=== PATIENT | female | born 1980 | race Caucasian/White ===

== ENCOUNTER 2017-10-20 06:35 | Day surgery (SDC) | payer BC, MEDICARE, OTHER ==
[~2017-10-20 06:35] MED LIST: Lactated Ringers 1,000 ML IV SCH; Lidocaine 1%/Sod Bicarbonate in NS 8.4% 1 ML Syringe PRN; Sodium Chloride 0.9% 10 ML Syringe FLUSH PRN
[2017-10-20] MEDS ORDERED: Bupivacaine 0.5% 30 ML SDV ONE (07:16)
[2017-10-20] MEDS ORDERED: Bupivacaine 0.5%/EPINEPHrine 1:200,000 50 ML MDV ONE (07:16)
--- NOTE | 2017-10-20 07:37 | PCM.PREANE ---
Preanesthetic Assessment - Procedure Proposed Procedure: Total vaginal hysterectomy with BS, Possible LAVH with BS, Possible WALTER with BS - Anesthesia/Transfusion/Family Hx Anesthesia History: No Prior Anesthesia Family History of Anesthesia Reaction: Yes (nausea) Transfusion History: No Prior Transfusion(s) - Review of Systems General: No Symptoms Pulmonary: No Symptoms Cardiovascular: No Symptoms Gastrointestinal: No Symptoms Neurological: No Symptoms Other: Reports: None - Physical Assessment NPO Status Date: 10/19/17 NPO Status Time: 21:00 O2 Sat by Pulse Oximetry: 96 Respiratory Rate: 16 Vital Signs: Last Vital Signs Temp 37.3 C 10/20/17 07:00 Pulse 108 H 10/20/17 07:00 Resp 16 10/20/17 07:00 BP 118/80 10/20/17 07:00 Pulse Ox 96 10/20/17 07:00 Height: 1.6 m Weight: 69.853 kg ASA Class: 2 Mental Status: Alert & Oriented x3 Airway Class: Mallampati = 1 Dentition: Reports: Normal Dentition ROM/Head Extension: Full Lungs: Clear to Auscultation, Normal Respiratory Effort Cardiovascular: Regular Rate, Regular Rhythm - Lab Values: Laboratory Last Values WBC 7.37 K/mm3 (3.98-10.04) 10/20/17 07:10 RBC 4.61 M/mm3 (3.98-5.22) 10/20/17 07:10 Hgb 14.5 gm/L (11.2-15.7) 10/20/17 07:10 Hct 41.5 % (34.1-44.9) 10/20/17 07:10 MCV 90.0 fl (79.4-94.8) 10/20/17 07:10 MCH 31.5 pg (25.6-32.2) 10/20/17 07:10 MCHC 34.9 g/dl (32.2-35.5) 10/20/17 07:10 RDW Std Deviation 38.2 fL (36.4-46.3) 10/20/17 07:10 Plt Count 245 K/mm3 (182-369) 10/20/17 07:10 MPV 8.9 fl (9.4-12.3) L 10/20/17 07:10 Neut % (Auto) 69.0 % (34.0-71.1) 10/20/17 07:10 Lymph % (Auto) 22.0 % (19.3-51.7) 10/20/17 07:10 Luna % (Auto) 6.6 % (4.7-12.5) 10/20/17 07:10 Eos % (Auto) 2.0 (0.7-5.8) 10/20/17 07:10 Baso % (Auto) 0.3 % (0.1-1.2) 10/20/17 07:10 Neut # (Auto) 5.08 K/mm3 (1.56-6.13) 10/20/17 07:10 Lymph # (Auto) 1.62 K/mm3 (1.18-3.74) 10/20/17 07:10 Luna # (Auto) 0.49 K/mm3 (0.24-0.36) H 10/20/17 07:10 Eos # (Auto) 0.15 K/mm3 (0.04-0.36) 10/20/17 07:10 Baso # (Auto) 0.02 K/mm3 (0.01-0.08) 10/20/17 07:10 Urine HCG, Qual Negative (NEGATIVE) 10/20/17 06:49 - Allergies Allergies/Adverse Reactions: Allergies Allergy/AdvReac Type Severity Reaction Status Date / Time No Known Allergies Allergy Verified 10/19/17 12:35 - Blood Blood Available: No - Anesthesia Plan Pre-Op Medication Ordered: None - Acknowledgements Anesthesia Type Planned: General Anesthesia Pt an Appropriate Candidate for the Planned Anesthesia: Yes Alternatives and Risks of Anesthesia Discussed w Pt/Guardian: Yes Pt/Guardian Understands and Agrees with Anesthesia Plan: Yes PreAnesthesia Questionnaire Other Genitourinary History: irregular menses, fibroid uterus Neurological History: Reports: Migraines Psychiatric History: Reports: Depression - Past Surgical History HEENT Surgical History: Reports: Oral Surgery Female Surgical History: Reports: LEEP - SUBSTANCE USE Smoking Status *Q: Never Smoker Recreational Drug Use History: No - HOME MEDS Home Medications: Home Meds Amitriptyline [Elavil] 10 mg PO DAILY 10/19/17 [History] Multivitamin [Multivitamins] 1 tab PO DAILY 10/19/17 [History] SUMAtriptan [Imitrex] 25 mg PO ASDIRECTED PRN 10/19/17 [History] Sertraline HCl [Zoloft] 150 mg PO DAILY 10/19/17 [History] - CURRENT (IN HOUSE) MEDS Current Meds: Current Medications Lactated Ringer's (Ringers, Lactated) 1,000 mls @ 125 mls/hr IV ASDIRECTED SAMANTHA Stop: 10/20/17 23:00 Last Admin: 10/20/17 07:10 Dose: 125 mls/hr Lidocaine/Sodium Bicarbonate (Buffered Lidocaine 1% In Ns 8.4%) 0.25 ml .XX ONETIME PRN PRN Reason: Prior to IV Start Stop: 10/20/17 18:00 Sodium Chloride (Saline Flush) 10 ml FLUSH ASDIRECTED PRN PRN Reason: Keep Vein Open Stop: 10/20/17 18:00 Discontinued Medications Bupivacaine HCl (Marcaine 0.5%) Confirm Administered Dose 30 ml .ROUTE .STK-MED ONE Stop: 10/20/17 07:17 Bupivacaine HCl/Epinephrine Bitart (Marcaine 0.5%/Epinephrine 1:200,000) Confirm Administered Dose 50 ml .ROUTE .STK-MED ONE Stop: 10/20/17 07:17
--- NOTE | 2017-10-20 07:58 | PCM.OPNOTE ---
- General Post-Op/Procedure Note Date of Surgery/Procedure: 10/20/17 Operative Procedure(s): Total vaginal hysterectomy Findings: Exam with a mobile, anteverted uterus. Intra-abdominal evaluation limited, but did show grossly normal ovaries. Pre Op Diagnosis: Abnormal uterine bleeding. 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 The patient was taken to the Operating Room where general anesthesia was induced without complication and found to be adequate. The patient was placed in dorsal lithotomy with Neo stirrups and an exam under anesthesia revealed the findings detailed above. The patient was then prepped and draped in the usual sterile fashion. Duncan catheter was placed into the bladder. A weighted speculum was placed in the vagina, and the cervix was grasped with two double tooth tenaculums. The cervix was injected circumferentially with 10 mL of marcaine with dilute epinephrine. The cervix was then circumferentially incised with a scalpel. The posterior cul-de-sac was entered sharply without difficulty. An 0-Vicryl suture was placed posteriorly to include the posterior vaginal mucosa and the posterior peritoneum. The short weighted speculum was replaced with a long weighted speculum into the peritoneal cavity posteriorly. The bladder was dissected away from the pubovesical cervical fascia anteriorly with a sponge and blunt dissection. The uterosacral ligaments were grasped on either side with the Ligasure, cauterized, and transected. A raytec was used for further blunt dissection of the bladder away from the pubovesical cervical fascia and then the anterior cul de sac was entered sharply with Metzenbaum scissors. The cardinal ligaments were then serially clamped on both sides, cauterized, and transected with the Ligasure. The uterine arteries were then clamped, cauterized, and transected on both sides. Hemostasis was adequate. Both cornua were then clamped, cauterized, and transected. The uterus was removed. The posterior peritoneum was closed to the posterior vaginal cuff with a running, locked 0 vicryl suture. The vaginal cuff was then closed in a running locked fashion with 0-Vicryl. Hemostasis was noted. The duncan catheter was removed at the end of the case. All sponge, lap, needle, and instrument counts were correct x 2. The patient tolerated the procedure well and there were no complications.
[2017-10-20] MEDS ORDERED: Propofol 200 MG/20 ML SDV ONE ×2 (08:03→09:04)
[2017-10-20] MEDS ORDERED: Midazolam 1 MG/ML 2 ML SDV ONE (08:03)
[2017-10-20] MEDS ORDERED: fentaNYL 250 MCG/5 ML SDV ONE (08:03)
[2017-10-20] MEDS ORDERED: Lidocaine 1% 4 ML ONE (08:05)
[2017-10-20] MEDS ORDERED: Ondansetron 4 MG/2 ML SDV ONE (08:28)
[2017-10-20] MEDS ORDERED: ceFAZolin 1 GM Vial ONE (08:28)
[2017-10-20] MEDS ORDERED: Dexamethasone 4 MG/ML 5 ML MDV ONE (08:28)
[2017-10-20] MEDS ORDERED: Ketamine 500 mg/10 ML MDV ONE ×2 (08:38→10:55)
[2017-10-20] MEDS ORDERED: Ketorolac 30 MG/ML SDV ONE (09:08)
[2017-10-20] MEDS ORDERED: Neostigmine Methylsulfate 10 MG/10 ML MDV ONE (09:09)
--- NOTE | 2017-10-20 09:53 | PCM.POSTAN ---
POST ANESTHESIA ASSESSMENT - MENTAL STATUS Mental Status: Other (drowsy ) - VITAL SIGNS Pulse Rate: 107 SaO2: 100 Resp Rate: 20 Blood Pressure: 118/74 Temperature: 98.2 C - RESPIRATORY Respiratory Status: Respiratory Rate WNL, Airway Patent, O2 Saturation Stable - CARDIOVASCULAR CV Status: Pulse Rate WNL, Blood Pressure Stable - GASTROINTESTINAL GI Status: No Symptoms - PAIN Pain Score: 0 - POST OP HYDRATION Hydration Status: Adequate & Stable
[2017-10-20] MEDS ORDERED: Meperidine PF 50 MG/ML Syringe IVPUSH PRN (09:55)
[2017-10-20] MEDS ORDERED: fentaNYL 100 MCG/2 ML SDV IVPUSH PRN (09:55)
[2017-10-20] MEDS ORDERED: HYDROmorphone 1 MG/ML Syringe IVPUSH PRN (09:55)
[2017-10-20] MEDS ORDERED: diphenhydrAMINE 50 MG/ML SDV IVPUSH PRN (09:55)
[2017-10-20] MEDS ORDERED: Ondansetron 4 MG/2 ML SDV IVPUSH PRN (09:55)
[2017-10-20] MEDS ORDERED: Ondansetron 4 MG Tab.DIS PO SCH (12:00)
--- NOTE | 2017-10-20 13:53 | PCM48HPAN ---
Post Anesthesia Note - EVALUATION WITHIN 48HRS OF ANESTHETIC Vital Signs in Normal Range: Yes Patient Participated in Evaluation: Yes Respiratory Function Stable: Yes Airway Patent: Yes Cardiovascular Function Stable: Yes Hydration Status Stable: Yes Pain Control Satisfactory: Yes Nausea and Vomiting Control Satisfactory: Yes Mental Status Recovered: Yes
== END 2017-10-20 12:10 | disposition home or self-care (01) ==
LOC: JD.SDS 06:35
PROVIDERS: ATTEND Obstetrics & Gynecology
DX: N80.0 Endometriosis of uterus (principal); F32.9 Major depressive disorder, single episode, unspecified; Z79.899 Other long term (current) drug therapy
CPT/HCPCS: 36415; 58260; 80048; 81025; 85025; 86850; 86900; 86901; A9270; J0690; J1100; J1885; J2250; J2405; J2710; J3010; J7120; 00944; J2704

== ENCOUNTER 2018-02-27 23:26 | Emergency (ER) | payer OTHER ==
[2018-02-27] MEDS ORDERED: Prochlorperazine 10 MG/2 ML SDV IVPUSH ONE (23:38)
[2018-02-27] MEDS ORDERED: Ketorolac 30 MG/ML SDV IVPUSH ONE (23:38)
[2018-02-27] MEDS ORDERED: Sodium Chloride 0.9% 10 ML Syringe FLUSH PRN (23:38)
[2018-02-27] MEDS ORDERED: diphenhydrAMINE 50 MG/ML SDV IVPUSH ONE (23:39)
--- NOTE | 2018-02-27 23:43 | EDM.PDOC ---
ED HPI GENERAL MEDICAL PROBLEM - General Chief Complaint: Headache Stated Complaint: MIGRAINE Time Seen by Provider: 02/27/18 23:34 Source of Information: Reports: Patient History Limitations: Reports: No Limitations - History of Present Illness INITIAL COMMENTS - FREE TEXT/NARRATIVE: The patient presents with a headache. This started at about 6pm tonight. The pain is to her whole head. She has some blurry vision and photophobia. She has no numbness or weakness. She does have a history of migraines but this one is different. She usually can control it at home and they usually do not come on this fast. She has imitrex at home and that did not help. Onset: Sudden Duration: Hour(s): (6pm) Location: Reports: Head Quality: Reports: Sharp Severity: Severe Improves with: Reports: None Worsens with: Reports: None Associated Symptoms: Reports: Headaches. Denies: Cough, Fever/Chills, Loss of Appetite, Nausea/Vomiting, Shortness of Breath Headache Pain Score (Numeric/FACES): 8 - Related Data Allergies Allergy/AdvReac Type Severity Reaction Status Date / Time No Known Allergies Allergy Verified 02/27/18 23:31 Home Meds: Home Meds Amitriptyline [Elavil] 10 mg PO ASDIRECTED PRN 10/19/17 [History] SUMAtriptan [Imitrex] 25 mg PO ASDIRECTED PRN 10/19/17 [History] Sertraline HCl [Zoloft] 125 mg PO DAILY 10/19/17 [History] Ondansetron [Zofran ODT] 4 mg PO ASDIRECTED PRN 02/27/18 [History] Past Medical History Other Genitourinary History: irregular menses, fibroid uterus Neurological History: Reports: Migraines Psychiatric History: Reports: Depression - Past Surgical History HEENT Surgical History: Reports: Oral Surgery Female Surgical History: Reports: LEEP Social & Family History - Tobacco Use Smoking Status *Q: Never Smoker - Recreational Drug Use Recreational Drug Use: No Drug Use in Last 12 Months: No ED ROS GENERAL - Review of Systems Review Of Systems: See Below Constitutional: Reports: No Symptoms HEENT: Reports: No Symptoms Respiratory: Reports: No Symptoms Cardiovascular: Reports: No Symptoms Endocrine: Reports: No Symptoms GI/Abdominal: Reports: No Symptoms : Reports: No Symptoms Musculoskeletal: Reports: No Symptoms Skin: Reports: No Symptoms Neurological: Reports: Headache - Physical Exam Exam: See Below Exam Limited By: No Limitations General Appearance: Alert, No Apparent Distress Ears: Normal External Exam Nose: Normal Inspection Head Exam: Atraumatic, Normocephalic Neck: Normal Inspection Respiratory/Chest: No Respiratory Distress, Lungs Clear, Normal Breath Sounds Cardiovascular: Regular Rate, Rhythm, No Edema, No Murmur GI/Abdominal: Soft, Non-Tender, No Organomegaly, No Mass Neuro Exam (Abbreviated): Alert, Oriented, No Motor/Sensory Deficits Course - Vital Signs Last Recorded V/S: Last Vital Signs Temp 98.4 F 02/27/18 23:39 Pulse 105 H 02/27/18 23:39 Resp 18 02/27/18 23:39 BP 140/94 H 02/27/18 23:39 Pulse Ox 98 02/27/18 23:39 - Orders/Labs/Meds Orders: Active Orders 24 hr Category Date Time Status Peripheral IV Care [RC] . DIRECTED Care 02/27/18 23:38 Active Sodium Chloride 0.9% [Saline Flush] Med 02/27/18 23:38 Active 10 ml FLUSH ASDIRECTED PRN Peripheral IV Insertion Adult [OM.PC] Routine Oth 02/27/18 23:38 Ordered Medication Orders Sodium Chloride (Saline Flush) 10 ml FLUSH ASDIRECTED PRN PRN Reason: Keep Vein Open Last Admin: 02/27/18 23:44 Dose: 10 ml Meds: Medications Generic Name Dose Route Start Last Admin Trade Name Freq PRN Reason Stop Dose Admin Sodium Chloride 10 ml 02/27/18 23:38 02/27/18 23:44 Saline Flush FLUSH 10 ml ASDIRECTED PRN Administration Keep Vein Open Discontinued Medications Generic Name Dose Route Start Last Admin Trade Name Freq PRN Reason Stop Dose Admin Diphenhydramine HCl 50 mg 02/27/18 23:39 02/27/18 23:43 Benadryl IVPUSH 02/27/18 23:40 50 mg ONETIME ONE Administration Ketorolac Tromethamine 30 mg 02/27/18 23:38 02/27/18 23:43 Toradol IVPUSH 02/27/18 23:39 30 mg ONETIME ONE Administration Prochlorperazine Edisylate 10 mg 02/27/18 23:38 02/27/18 23:43 Compazine IVPUSH 02/27/18 23:39 10 mg ONETIME ONE Administration - Re-Assessments/Exams Free Text/Narrative Re-Assessment/Exam: 02/27/18 23:42 I ordered an IV saline lock, compazine 10mg IV, toradol 30mg IV, and benadryl 50mg IV. 02/28/18 00:21 She feels much better. I will discharge her home. Departure - Departure Time of Disposition: 00:25 Disposition: Home, Self-Care 01 Condition: Good Clinical Impression: Migraine - Discharge Information Referrals: Desiree Cheung MD [Primary Care Provider] - Forms: ED Department Discharge Additional Instructions: Go home and get some rest in a quit dark room. Please return if you are worse. - My Orders Last 24 Hours: My Active Orders 02/27/18 23:38 Peripheral IV Care [RC] . DIRECTED Sodium Chloride 0.9% [Saline Flush] 10 ml FLUSH ASDIRECTED PRN Peripheral IV Insertion Adult [OM.PC] Routine - Assessment/Plan Last 24 Hours: My Active Orders 02/27/18 23:38 Peripheral IV Care [RC] . DIRECTED Sodium Chloride 0.9% [Saline Flush] 10 ml FLUSH ASDIRECTED PRN Peripheral IV Insertion Adult [OM.PC] Routine
== END 2018-02-28 00:25 | disposition home or self-care (01) ==
LOC: JD.ED 23:26
DX: G43.909 Migraine, unspecified, not intractable, without status migrainosus (principal); F32.9 Major depressive disorder, single episode, unspecified; Z79.899 Other long term (current) drug therapy
CPT/HCPCS: 96374; 96375; 99283; J0780; J1200; J1885; J7050; 99284